=== PATIENT | female | born 1995 | race Hispanic/Latino ===

== ENCOUNTER → 2019-01-05 | Outpatient (CLI) | payer BC | END | disposition home or self-care (01) | LOC: LAB 17:25 | PROVIDERS: ATTEND Obstetrics & Gynecology | DX: Z01.419 Encounter for gynecological examination (general) (routine) without abnormal findings (principal) | CPT/HCPCS: 36415; 84702 ==

== ENCOUNTER → 2019-11-29 | Outpatient (CLI) | payer BC, OTHER | END | disposition home or self-care (01) | LOC: LAB 08:20 | PROVIDERS: ATTEND Obstetrics & Gynecology | DX: O99.810 Abnormal glucose complicating pregnancy (principal); Z3A.00 Weeks of gestation of pregnancy not specified | CPT/HCPCS: 36415; 82951 ==

== ENCOUNTER → 2020-02-06 | Outpatient (CLI) | payer OTHER ==
--- NOTE | 2020-02-06 14:46 | DIREP ---
PROCEDURE:US OB 2 3TRI DETAILED TRANSABD COMPARISON:None. INDICATIONS:Z34.02 NORMAL FIRST , SECOND TRIMESTER, ANATOMY TECHNIQUE:Transabdominal sonography of the gravid uterus was performed. FINDINGS: NUMBER: Single. POSITION: Breech. AMNIOTIC FLUID VOLUME: Largest vertical pocket: 4.5 cm, (normal is 2-8 cm). PLACENTAL LOCATION: Anterior. No previa. CERVICAL LENGTH: Measures 3.0 cm. HEART RATE: 145 bpm BIPARIETAL DIAMETER: 4.7 cm, (20 weeks, 1 days),40.5 percentile. HEAD CIRCUMFERENCE: 17.6 cm,(20 weeks, 1 days),33.2 percentile. ABD CIRCUMFERENCE: 16.3 cm,(21 weeks, 3 days),78.5 percentile. FEMUR LENGTH:3.4 cm, (20 weeks, 6 days), 62.0 percentile. EFW: 391.4 g,(83.0 percentile). ANATOMY: CEREBELLUM: 2.1 cm NUCHAL FOLD: 5.2 mm CISTERNA MAGNA: 5.0 mm LATERAL VENTRICLES: 7.3 mm CHOROID PLEXUS: Normal. MIDLINE FALX: Normal. CAVUM SEPTUM PELLUCIDUM: Normal. 4 CHAMBER VIEW OF HEART:Normal. UPPER LIP: Normal. STOMACH: Normal. KIDNEYS: Normal. BLADDER: Normal. CORD INSERTION: Normal. CORD VESSEL NUMBER: unable to confirm 3 vessels. SPINE: Normal. EXTREMITIES: Present. OTHER: Anatomy seen suboptimally above is related to patient habitus and/or the position of the fetus. ULTRASOUND AGE: 20 weeks, 5 days ULTRASOUND MARIANNA: June 20, 2020 CLINICAL AGE: 20 weeks, 2 days CLINICAL MARIANNA: June 23, 2020 CONCLUSION: Single live intrauterine . unable to confirm three-vessel cord. Dictated by: SHANTI Physician on 02/06/2020 at 12:37 PM ac
== END | disposition home or self-care (01) ==
LOC: RAD 09:46
PROVIDERS: ATTEND Obstetrics & Gynecology
DX: O32.1XX0 Maternal care for breech presentation, not applicable or unspecified (principal); Z3A.20 20 weeks gestation of pregnancy
CPT/HCPCS: 76805

== ENCOUNTER 2020-06-24 05:38 | Inpatient (IN) | payer OTHER ==
[~2020-06-24] VITALS: Ht 167.6 cm; Wt 74.8 kg
[2020-06-24] MEDS ORDERED: PNV1TABL11 PO (06:17)
[2020-06-24 06:25] LABS: APPEARANCE,URINE CLEAR (CLEAR); BILIRUBIN,URINE NEGATIVE (NEGATIVE); UA COLOR YELLOW (YELLOW)
[2020-06-24 06:26] LABS: UROBILINOGEN,URINE 0.2 (NEGATIVE)
[2020-06-24] MEDS ORDERED: D5LR 1000ML 1,000 ML IV SCH (06:30)
[2020-06-24] MEDS ORDERED: LIDOCAINE 1% VIAL MC PRN (06:30)
[2020-06-24] MEDS ORDERED: PHENERGAN IV PRN (06:30)
[2020-06-24] MEDS ORDERED: BICITRA PO PRN (06:30)
[2020-06-24] MEDS ORDERED: DEMEROL IV PRN (06:30)
[2020-06-24 06:45] LABS: BASOPHIL % 0.1 % (0.0-0.2); EOSINOPHIL % 0.1 % (0.0-5.0); LYMPHOCYTES # 1.38 10^3/uL1 (1.0-4.8); MEAN CORP HGB 28.5 pg (26-34); MONOCYTES # 0.3 10^3/uL (0.3-0.8); NEUTROPHIL # 8.9 10^3/uL (1.8-7.7); NEUTROPHILS % 83.4 % (41.0-85.0); PLATELET COUNT 384 10^3/uL (150-400); RED CELL DISTRIBUTION WIDTH 16.7 % (11.5-14.5)
[2020-06-24] MEDS ORDERED: WATER ONE (07:45)
[2020-06-24] MEDS ORDERED: OXYTOCIN 30 UNIT/NS 500 ML 500 ML IV ONE (07:46)
[2020-06-24] MEDS: LACTATED RINGERS 1,000 ML IV SCH ×2 (09:51→15:35)
[2020-06-24] MEDS ORDERED: NAROPIN ONE (10:17)
--- NOTE | 2020-06-24 12:21 | PCM.HP ---
OB-Chief Complaint and HPI Date/Diagnosis Date: Jun 24, 2020 Time: 12:18 Admit Dx: (1) 40 weeks gestation of ICD Codes: Z3A.40 - 40 weeks gestation of SNOMED: 27393277 (2) Gestational diabetes ICD Codes: O24.419 - Gestational diabetes mellitus in , unspecified control SNOMED: 21181245 (3) Rubella non-immune status, antepartum ICD Codes: O99.891 - Other specified diseases and conditions complicating ; Z28.3 - Underimmunization status SNOMED: 13223367, 582470964 (4) COVID-19 affecting , antepartum ICD Codes: O98.519 - Other viral diseases complicating , unspecified trimester; U07.1 - COVID-19 SNOMED: 72954655, 87077570, [id number] Chief Complaint/History(PI) : 1 Para: 0 EDC: Jun 23, 2020 Reason for admission: active labor Past Family/Social History Blood Type: O+ Rubella: not immune RPR/VDRL: Negative GBS Status: Negative HBsAG: Negative Provider Note: Patient is a 24-year-old G1, P0 at 40.1 weeks who presented in active labor. Patient was 4 cm and intact. Patient progressed in labor and requested an epidural anesthesia. Patient currently comfortable. Patient recently diagnosed with COVID-19. She is outside of her quarantine time. Other than mild symptoms she has been stable. Patient had is a diet-controlled gestational diabetic. Blood sugars have been stable throughout course A/ 24-year-old G1, P0 at 40.1 GDMA1 Rubella NI GBS neg Plans nursing s/p COVID-19 P/ Expectant management Pain meds prn MMR PP Plan for condom use PP OB EXAM Physical Exam Vital Signs: Weight: 165 Vital Signs Date Time Temp Pulse Resp B/P (MAP) Pulse Ox O2 Delivery O2 Flow Rate FiO2 06/26/20 12:47 82 18 98 Room Air LABS Laboratory Tests Test 06/24/20 06:30 HIV-1 Antibody NON-REACTIVE (NONREACTIVE) HIV-2 Antibody NON-REACTIVE (NONREACTIVE) EULOGIO MONTENEGRO DO Jun 24, 2020 12:21
--- NOTE | 2020-06-24 13:27 | PRM.PN ---
Assessment/Plan Assessment/Plan Patient comfortable with epidural. Contractions every 4 to 5 minutes. heart tones category 1. at bedside for support. We will plan for AROM later and expect spontaneous vaginal delivery EULOGIO MONTENEGRO DO Jun 24, 2020 13:27
[2020-06-24] MEDS ORDERED: SUBLIMAZE ONE (13:59)
[2020-06-24] MEDS ORDERED: XYLOCAINE 2%-EPI 1:100,000 ONE (14:00)
[2020-06-24] MEDS ORDERED: XYLOCAINE 1%-EPI 1:100,000 ONE (14:00)
[2020-06-24] MEDS ORDERED: LACTATED RINGERS 1,000 ML ONE (15:31)
--- NOTE | 2020-06-24 15:33 | PRM.PN ---
Assessment/Plan Assessment/Plan Pt comfortable. Had to be redosed on epidural. SVE c/-1, bulging bag ruptured, clear fluid. T Cat 1. -Will begin pushing EULOGIO MONTENEGRO DO Jun 24, 2020 15:33
--- NOTE | 2020-06-24 17:52 | PCM.OBDEL1 ---
OPERATIVE REPORT OPERATIVE REPORT 40.1- over an intact perineum. Viable female Apgars 8/9. Infant delivered and handed to mother. Delayed cord clamp and cut. Spontaneous cry noted. Spontaneous placenta expelled. First-degree bilateral labial lacerations noted. Left labial laceration repaired to obtain hemostasis. Second-degree midline vaginal laceration repaired with 2-0 chromic. Hemostasis noted. Fundus firm with massage. Mother and stable. QBL 50 mL. EULOGIO MONTENEGRO DO Jun 24, 2020 17:51
[2020-06-24] MEDS ORDERED: NORCO 5MG PO PRN ×2 (18:00)
[2020-06-24] MEDS ORDERED: MYLANTA PO PRN (18:00)
[2020-06-24] MEDS ORDERED: TUCKS TP PRN (18:00)
[2020-06-24] MEDS ORDERED: LANOLIN HYDROUS TP PRN (18:00)
[2020-06-24] MEDS ORDERED: DERMOPLAST SPRAY TP PRN (18:00)
[2020-06-24] MEDS ORDERED: TYLENOL PO PRN (18:00)
[2020-06-24] MEDS ORDERED: OXYTOCIN 30 UNIT/NS 500 ML 500 ML IV SCH (18:00)
[2020-06-24] MEDS: COLACE PO SCH (20:39)
[2020-06-24] MEDS: MOTRIN PO PRN (20:40)
[2020-06-25 05:20] LABS: BASOPHIL % 0.1 % (0.0-0.2); EOSINOPHIL % 0.1 % (0.0-5.0); LYMPHOCYTES # 4.02 10^3/uL1 (1.0-4.8); LYMPHOCYTES % 25.6 % (24.0-44.0); MONOCYTES # 1.9 10^3/uL (0.3-0.8); MONOCYTES % 12.2 % (5.0-12.0); NEUTROPHIL # 9.7 10^3/uL (1.8-7.7); NEUTROPHILS % 61.7 % (41.0-85.0); PLATELET COUNT 272 10^3/uL (150-400); RED CELL DISTRIBUTION WIDTH 16.3 % (11.5-14.5)
[2020-06-25] MEDS ORDERED: COLACE PO ONE ×2 (07:51→21:08)
[2020-06-25] MEDS ORDERED: MOTRIN ONE ×2 (07:52→21:08)
[2020-06-25] MEDS: MOTRIN PO PRN ×2 (07:56→21:24)
--- NOTE | 2020-06-25 17:06 | PRM.PN ---
Progress Note Subjective Date: Jun 25, 2020 Time: 17:05 Physician Notes: HD # 1 Patient is doing well today. Sitting up in bed working with nursing on latching. Tolerating regular diet. Denies current pain. States pain medicine working well. Ambulating and urinating without difficulty. Partner in room. A/ 24-year-old G1, P0 at 40.1, PPD # 1 GDMA1 Rubella NI GBS neg Nursing s/p COVID-19 P/ Continue PP care assistance MMR PP Plan for condom use PP Objective Review IO, Exams,& Results Vital Signs Date Time Temp Pulse Resp B/P (MAP) Pulse Ox O2 Delivery O2 Flow Rate FiO2 06/24/20 06:02 Room Air Intake and Output 06/25/20 07:00 Intake Total 500 ml Balance 500 ml Intake IV Total 500 ml Laboratory Tests Test 06/24/20 05:46 06/24/20 06:30 06/25/20 05:03 Urine Collection Type VOID Urine Color YELLOW Urine Appearance CLEAR Urine Bilirubin NEGATIVE MG/DL Urine Ketones [address] 1.015 Urine pH 7.0 Urine Protein NEGATIVE Urine Urobilinogen 0.2 Urine Nitrate NEGATIVE Urine Leukocyte Esterase NEGATIVE Urine Blood SMALL Urine RBC 10-25 RBC/HPF Urine WBC 0-2 WBC/HPF Urine Squamous Epithelial Cells FEW #/HPF Urine Bacteria FEW Urine Glucose NEGATIVE White Blood Count 10.6 10^3/uL 15.7 10^3/uL Red Blood Count 4.17 10^6/uL 3.31 10^6/uL Hemoglobin 11.9 g/dL 9.6 g/dL Hematocrit 35.7 % 28.2 % Mean Corpuscular Volume 85.6 fL 85.2 fL Mean Corpuscular Hemoglobin 28.5 pg 29.0 pg Mean Corpuscular Hemoglobin Concent 33.3 g/dL 34.0 g/dL Red Cell Distribution Width 16.7 % 16.3 % Platelet Count 384 10^3/uL 272 10^3/uL Mean Platelet Volume 10.1 fL 10.0 fL Neutrophils (%) (Auto) 83.4 % 61.7 % Lymphocytes (%) (Auto) 13.0 % 25.6 % Monocytes (%) (Auto) 3.0 % 12.2 % Neutrophils # (Auto) 8.9 10^3/uL 9.7 10^3/uL Lymphocytes # (Auto) 1.38 10^3/uL1 4.02 10^3/uL1 Monocytes # (Auto) 0.3 10^3/uL 1.9 10^3/uL Absolute Immature Granulocyte (auto 0.04 10^3 u/L 0.04 10^3 u/L Absolute Eosinophils (auto) 0.0 10^3/uL 0.0 10^3/uL Immature Granulocytes % 0.40 % 0.30 % Eosinophils % 0.1 % 0.1 % Basophils % 0.1 % 0.1 % Basophils # 0.0 10^3/uL 0.0 10^3/uL Hepatitis B Surface Antigen Negative HIV-1 Antibody NON-REACTIVE HIV-2 Antibody NON-REACTIVE Current Medications Medications (Trade) Dose Ordered Sig/Bruno PRN Reason Start Time Stop Time Status Last Admin Acetaminophen (Tylenol) 650 mg Q4HR PRN PAIN 1 - 3 06/24/20 18:00 07/24/20 17:59 Acetaminophen/ Hydrocodone Bitart ([place] 5mg) 1 ea Q4HR PRN PAIN 4 - 6 06/24/20 18:00 07/24/20 17:59 Acetaminophen/ Hydrocodone Bitart ([place] 5mg) 2 ea Q4HR PRN PAIN 7 - 10 06/24/20 18:00 07/24/20 17:59 Benzocaine (Dermoplast [place]) To perineum PRN sut... PRN PRN Perineal Pain 06/24/20 18:00 07/24/20 17:59 06/24/20 20:39 Citric Acid/ Sodium Citrate (Bicitra) 15 ml PRN PRN INDIGESTION 06/24/20 06:30 07/24/20 06:29 Docusate Sodium (Colace) 100 mg HS 06/24/20 21:00 07/24/20 20:59 06/24/20 20:39 Ibuprofen (Motrin) 800 mg Q6HR PRN CRAMPING 06/24/20 18:00 07/24/20 17:59 06/25/20 07:56 Lanolin (Lanolin Hydrous) Apply to nipples PRN dry, pain... TID PRN pain/cracking 06/24/20 18:00 07/24/20 17:59 06/24/20 20:39 Witch Sabrina (Tucks) To perineal area ... PRN PRN Hemorrhoids 06/24/20 18:00 07/24/20 17:59 06/24/20 20:39 Orders - EULOGIO MONTENEGRO DO Routine Vital Signs (06/24/20 17:52) Activity Advance As Tolerated (06/24/20 17:52) Ice Pk To Episiotomy/Tear (06/24/20 17:52) Sitz Bath Prn (06/24/20 17:52) Docusate Sodium (Colace) (06/24/20 21:00) Lanolin (Lanolin Hydrous) (06/24/20 18:00) Ibuprofen (Motrin) (06/24/20 18:00) Acetaminophen (Tylenol) (06/24/20 18:00) Hydrocodone/Acetaminophen ([place] 5mg) (06/24/20 18:00) Hydrocodone/Acetaminophen ([place] 5mg) (06/24/20 18:00) Mag Hydrox/Aluminum Hyd/Simeth (Mylanta) (06/24/20 18:00) Benzocaine/Lanolin/Aloe Vera (Dermoplast (06/24/20 18:00) Witch Sabrina (Tucks) (06/24/20 18:00) Regular Diet (06/25/20 Breakfast) EULOGIO MONTENEGRO DO Jun 25, 2020 17:06
[2020-06-25] MEDS: COLACE PO SCH (21:24)
[2020-06-26 12:47] VITALS: BP 123/73
[2020-06-26] MEDS ORDERED: M-M-R II VACCINE WITH DILUENT SQ ONE (13:30)
--- NOTE | 2020-06-26 15:00 | PRM.PN ---
Progress Note Subjective Date: Jun 26, 2020 Time: 14:57 Physician Notes: HD # 2 Vanessa is doing well today. Ambulating in room without difficulty. States she is ready to go home. Has not taken pain medication today but would like a Motrin prescription for an as-needed basis. Breasts feeding improving. Tolerating regular diet. in room for support. VS- 98.3,18,99%,81,123/73 ABD-firm fundus EX-Full ROM, NT A/ 24-year-old G1, P0 at 40.1, PPD # 2 GDMA1 Rubella NI GBS neg Nursing s/p COVID-19 P/ Continue PP care assistance-[facility] referral if necessary MMR PP-today Plan for condom use PP Objective Review IO, Exams,& Results Vital Signs Date Time Temp Pulse Resp B/P (MAP) Pulse Ox O2 Delivery O2 Flow Rate FiO2 06/26/20 12:47 82 18 98 Room Air Laboratory Tests Test 06/25/20 05:03 White Blood Count 15.7 10^3/uL Red Blood Count 3.31 10^6/uL Hemoglobin 9.6 g/dL Hematocrit 28.2 % Mean Corpuscular Volume 85.2 fL Mean Corpuscular Hemoglobin 29.0 pg Mean Corpuscular Hemoglobin Concent 34.0 g/dL Red Cell Distribution Width 16.3 % Platelet Count 272 10^3/uL Mean Platelet Volume 10.0 fL Neutrophils (%) (Auto) 61.7 % Lymphocytes (%) (Auto) 25.6 % Monocytes (%) (Auto) 12.2 % Neutrophils # (Auto) 9.7 10^3/uL Lymphocytes # (Auto) 4.02 10^3/uL1 Monocytes # (Auto) 1.9 10^3/uL Absolute Immature Granulocyte (auto 0.04 10^3 u/L Absolute Eosinophils (auto) 0.0 10^3/uL Immature Granulocytes % 0.30 % Eosinophils % 0.1 % Basophils % 0.1 % Basophils # 0.0 10^3/uL Current Medications Medications (Trade) Dose Ordered Sig/Bruno PRN Reason Start Time Stop Time Status Last Admin Acetaminophen (Tylenol) 650 mg Q4HR PRN PAIN 1 - 3 06/24/20 18:00 07/24/20 17:59 Acetaminophen/ Hydrocodone Bitart ([place] 5mg) 1 ea Q4HR PRN PAIN 4 - 6 06/24/20 18:00 07/24/20 17:59 Acetaminophen/ Hydrocodone Bitart ([place] 5mg) 2 ea Q4HR PRN PAIN 7 - 10 06/24/20 18:00 07/24/20 17:59 Benzocaine (Dermoplast [place]) To perineum PRN sut... PRN PRN Perineal Pain 06/24/20 18:00 07/24/20 17:59 06/24/20 20:39 Citric Acid/ Sodium Citrate (Bicitra) 15 ml PRN PRN INDIGESTION 06/24/20 06:30 07/24/20 06:29 Docusate Sodium (Colace) 100 mg HS 06/24/20 21:00 07/24/20 20:59 06/25/20 21:24 Ibuprofen (Motrin) 800 mg Q6HR PRN CRAMPING 06/24/20 18:00 07/24/20 17:59 06/25/20 21:24 Lanolin (Lanolin Hydrous) Apply to nipples PRN dry, pain... TID PRN pain/cracking 06/24/20 18:00 07/24/20 17:59 06/24/20 20:39 Witch Sabrina (Tucks) To perineal area ... PRN PRN Hemorrhoids 06/24/20 18:00 07/24/20 17:59 06/24/20 20:39 EULOGIO Chavez DO Routine Vital Signs (06/24/20 17:52) Activity Advance As Tolerated (06/24/20 17:52) Ice Pk To Episiotomy/Tear (06/24/20 17:52) Sitz Bath Prn (06/24/20 17:52) Docusate Sodium (Colace) (06/24/20 21:00) Lanolin (Lanolin Hydrous) (06/24/20 18:00) Ibuprofen (Motrin) (06/24/20 18:00) Acetaminophen (Tylenol) (06/24/20 18:00) Hydrocodone/Acetaminophen ([place] 5mg) (06/24/20 18:00) Hydrocodone/Acetaminophen ([place] 5mg) (06/24/20 18:00) Mag Hydrox/Aluminum Hyd/Simeth (Mylanta) (06/24/20 18:00) Benzocaine/Lanolin/Aloe Vera (Dermoplast (06/24/20 18:00) Witch Sabrina (Tucks) (06/24/20 18:00) Regular Diet (06/25/20 Breakfast) Discharge (06/26/20 12:45) EULOGIO MONTENEGRO 3, 2021 15:00
--- NOTE | 2020-06-26 15:03 | PRM.DC ---
DISCHARGE SUMMARY Y ADMIT DATE: 06/24/2020 DISCHARGE DATE: 06/26/2020 ADMITTING DIAGNOSIS: Active labor at 40 weeks DISCHARGE DIAGNOSIS: Status post , uncomplicated HOSPITAL COURSE: Uncomplicated labor, delivery and course PROCEDURES & DATES: 06/24/2020 COMPLICATIONS: None MEDICATIONS: Motrin DISPOSITION: Stable to home ASSESSMENT & PLAN: A/ 24-year-old G1, P0 at 40.1, PPD # 2 GDMA1 Rubella NI GBS neg Nursing s/p COVID-19 P/ Continue PP care assistance-[facility] referral if necessary MMR PP-today Plan for condom use PP D/C to home with 2 week f/u EULOGIO MONTENEGRO DO Jun 26, 2020 15:03
[2020-06-26] MEDS ORDERED: IBUP-1131 PO (15:05)
== END 2020-06-26 14:25 | disposition home or self-care (01) | DRG 807 ==
LOC: ATP 05:38 → LND 06:27 → OBSVTOIN 06:27
PROVIDERS: ADMIT Obstetrics & Gynecology; ATTEND Obstetrics & Gynecology
PROC: 10E0XZZ Delivery of Products of Conception, External Approach (ICD-10-PCS; principal; 2020-06-24)
PROC: 0KQM0ZZ Repair Perineum Muscle, Open Approach (ICD-10-PCS; 2020-06-24)
PROC: 3E0R3BZ Introduction of Anesthetic Agent into Spinal Canal, Percutaneous Approach (ICD-10-PCS; 2020-06-24)
PROC: 00HU33Z Insertion of Infusion Device into Spinal Canal, Percutaneous Approach (ICD-10-PCS; 2020-06-24)
DX: O24.420 Gestational diabetes mellitus in childbirth, diet controlled (principal); Z37.0 Single live birth; O70.0 First degree perineal laceration during delivery; Z86.16 Personal history of COVID-19; Z3A.40 40 weeks gestation of pregnancy
CPT/HCPCS: 36415; 59025; 59610; 81000; 85025; 86318; 86592; 86900; 87086; 87340; G0378; J2001; J3010; J7120; 90707